=== PATIENT | male | born 1960 | race Caucasian/White ===

== ENCOUNTER 2017-01-17 11:19 | Emergency (ER) | payer BC, OTHER, SELFPAY ==
--- NOTE | 2017-01-17 12:22 | EDM.PDOC ---
[id number] IRREGULAR HEARTBEAT Time Seen by Provider: 01/17/17 11:45 Source of Information: Reports: Patient History Limitations: Reports: No Limitations - History of Present Illness INITIAL COMMENTS - FREE TEXT/NARRATIVE: 56-year-old male that has been experiencing palpitations for over a year, however recently they've been more frequent and have been giving him some shortness of breath and anxiety. Last night while sleeping he could tell he was having quite a few extra heartbeats, and this morning at work it was even making him feel lightheaded so he came in to have it evaluated. He has no pain. He is smoking a pack of cigarettes a day. He gets infrequent dyspnea with palpitations. No abdominal pain, fevers, cough or headaches. Onset: Unknown/Unsure Severity: Mild Worsens with: Reports: Other (Seems to be worse with stress) Associated Symptoms: Reports: Shortness of Breath, Weakness. Denies: Confusion , Chest Pain, Fever/Chills, Nausea/Vomiting Denies Pain Score (Numeric/FACES): 0 - Related Data Allergies Allergy/AdvReac Type Severity Reaction Status Date / Time Penicillins Allergy Rash Verified 01/17/17 11:38 Sulfa (Sulfonamide Allergy Cannot Verified 01/17/17 11:38 Antibiotics) Remember Home Meds: Home Meds Aspirin [[place] Aspirin] 81 mg PO DAILY 01/17/17 [History] Lisinopril/Hydrochlorothiazide [Lisinopril-Hctz 20-12.5 mg Tab] 2 tab PO DAILY 01/17/17 [History] Past Medical History HEENT History: Reports: Impaired Vision Cardiovascular History: Reports: Hypertension Neurological History: Reports: Concussion - Infectious Disease History Infectious Disease History: Reports: Chicken Pox, Measles Social & Family History - Tobacco Use Smoking Status *Q: Current Every Day Smoker Years of Tobacco use: 38 Packs/Tins Daily: 1 Used Tobacco, but Quit: No Second Hand Smoke Exposure: Yes - Caffeine Use Caffeine Use: Reports: Coffee - Alcohol Use Days Per Week of Alcohol Use: 5 Number of Drinks Per Day: 2 Total Drinks Per Week: 10 - Recreational Drug Use Recreational Drug Use: No ED ROS GENERAL - Review of Systems Review Of Systems: See Below Constitutional: Reports: Malaise. Denies: Fever, Chills HEENT: Reports: No Symptoms Respiratory: Reports: Shortness of Breath. Denies: Pleuritic Chest Pain, Cough Cardiovascular: Reports: Lightheadedness, Palpitations. Denies: Chest Pain GI/Abdominal: Denies: Abdominal Pain, Nausea, Vomiting : Reports: No Symptoms Musculoskeletal: Reports: No Symptoms Skin: Reports: No Symptoms Neurological: Reports: Dizziness. Denies: Headache Psychiatric: Reports: Anxiety ED EXAM, GENERAL - Physical Exam Exam: See Below Exam Limited By: No Limitations General Appearance: Alert, No Apparent Distress Eye Exam: Bilateral Eye: EOMI Respiratory/Chest: No Respiratory Distress, Lungs Clear Cardiovascular: Regular Rate, Rhythm, Extra Beats GI/Abdominal: Soft, Non-Tender, Other (Obese) Extremities: Normal Inspection. No: Pedal Edema Neurological: Alert, Oriented Psychiatric: Normal Affect, Normal Mood Skin Exam: Warm, Dry EKG INTERPRETATION Rhythm: NSR EKG Interpretation Comments: Normal sinus rhythm with PACs. Course - Vital Signs Last Recorded V/S: Last Vital Signs Temp 99.1 F 01/17/17 11:35 Pulse 92 01/17/17 12:34 Resp 20 01/17/17 11:35 BP 138/69 01/17/17 12:34 Pulse Ox 89 L 01/17/17 12:34 - Orders/Labs/Meds Orders: Active Orders 24 hr Category Date Time Status EKG Documentation Completion [RC] ASDIRECTED Care 01/17/17 11:37 Active EKG 12 Lead [EK] Routine Ther 01/17/17 11:37 Ordered Labs: Laboratory Tests 01/17/17 01/17/17 Range/Units 11:48 11:48 WBC 10.0 (4.5-11.0) K/uL RBC 5.09 (4.30-5.90) M/uL Hgb 16.7 H (12.0-15.0) g/dL Hct 48.1 (40.0-54.0) % MCV 95 (80-98) fL MCH 33 H (27-31) pg MCHC 35 (32-36) % Plt Count 203 (150-400) K/uL Neut % (Auto) 78 H (36-66) % Lymph % (Auto) 13 L (24-44) % [place] % (Auto) 8 H (2-6) % Eos % (Auto) 1 L (2-4) % Baso % (Auto) 1 (0-1) % Sodium 134 L (140-148) mmol/L Potassium 3.6 (3.6-5.2) mmol/L Chloride 98 L (100-108) mmol/L Carbon Dioxide 32 (21-32) mmol/L Anion Gap 7.6 (5.0-14.0) mmol/L BUN 12 (7-18) mg/dL Creatinine 0.9 (0.8-1.3) mg/dL Est Cr Clr Drug Dosing 82.70 mL/min Estimated GFR (MDRD) > 60 (>60) Glucose 123 H (74-106) mg/dL Calcium 9.2 (8.5-10.1) mg/dL Total Bilirubin 0.4 (0.2-1.0) mg/dL AST 34 (15-37) U/L ALT 50 (12-78) U/L Alkaline Phosphatase 82 (46-116) U/L Troponin I < 0.017 (0.000-0.056) ng/mL Total Protein 7.5 (6.4-8.2) g/dL Albumin 3.6 (3.4-5.0) g/dL Globulin 3.9 H (2.3-3.5) g/dL Albumin/Globulin Ratio 0.9 L (1.2-2.2) TSH, Ultra Sensitive 0.742 (0.358-3.740) uIU/mL - Re-Assessments/Exams Free Text/Narrative Re-Assessment/Exam: 01/17/17 12:22 Patient was placed on a monitor which revealed occasional PACs, this is confirmed with an EKG. CBC, CMP and TSH were obtained while the patient was continued on the threat monitoring analyst. 01/17/17 12:39 TSH was normal, CMP was reassuring with a slightly elevated glucose, CBC revealed a normal white count and a slightly elevated hemoglobin. We discussed further options such as a Holter monitor and an echocardiogram, but the patient wants to get some insurance first as today he was just looking for some reassurance that what he was feeling wasn't serious. I strongly encouraged him to decrease his smoking. Departure - Departure Time of Disposition: 13:33 Disposition: Home, Self-Care 01 Condition: Good Clinical Impression: Intermittent palpitations, PAC (premature atrial contraction) Instructions: Premature Atrial Contraction Referrals: Marc Sosa MD [Primary Care Provider] - Forms: ED Department Discharge Care Plan Goals: Try to decrease smoking, limit caffeine and continue activity as tolerated. Consider following up with Dr. Sosa to discuss further testing such as Holter monitor or echocardiogram, especially if your symptoms persist and continue to be bothersome. - My Orders Last 24 Hours: My Active Orders 01/17/17 11:37 EKG Documentation Completion [RC] ASDIRECTED EKG 12 Lead [EK] Routine - Assessment/Plan Last 24 Hours: My Active Orders 01/17/17 11:37 EKG Documentation Completion [RC] ASDIRECTED EKG 12 Lead [EK] Routine
[2017-01-17 12:55] VITALS: BP 138/69
== END 2017-01-17 12:40 | disposition home or self-care (01) ==
LOC: JP.ED 11:19
DX: R00.2 Palpitations (principal); I49.1 Atrial premature depolarization; I10 Essential (primary) hypertension; F17.210 Nicotine dependence, cigarettes, uncomplicated; Z88.0 Allergy status to penicillin; Z88.2 Allergy status to sulfonamides; Z79.82 Long term (current) use of aspirin; Z79.899 Other long term (current) drug therapy
CPT/HCPCS: 36415; 80053; 84443; 84484; 85025; 93005; 93010; 99284; 99284-25

== ENCOUNTER 2018-09-16 19:54 | Emergency (ER) | payer SELFPAY ==
[2018-09-16] MEDS ORDERED: Sodium Chloride 0.9% 10 ML Syringe FLUSH PRN ×2 (20:12→23:36)
[2018-09-16] MEDS ORDERED: fentaNYL 100 MCG/2 ML SDV IVPUSH ONE ×2 (20:12→21:23)
[2018-09-16] MEDS ORDERED: Sodium Chloride 0.9% 1,000 ML IV SCH (20:15)
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
[2018-09-16] MEDS ORDERED: Sodium Chloride 0.9% 80 ML IV SCH (21:30)
[2018-09-16] MEDS ORDERED: Iopamidol 612 MG/ML 100 ML Bottle IV SCH (21:30)
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
[2018-09-16] MEDS ORDERED: HYDROmorphone 1 MG/ML Syringe IVPUSH ONE (23:08)
[2018-09-16 23:39] VITALS: BP 107/52
== END 2018-09-17 00:42 ==
LOC: JP.ED 19:54
DX: S82.142A Displaced bicondylar fracture of left tibia, initial encounter for closed fracture (principal); S82.832A Other fracture of upper and lower end of left fibula, initial encounter for closed fracture; S42.112A Displaced fracture of body of scapula, left shoulder, initial encounter for closed fracture; S22.42XA Multiple fractures of ribs, left side, initial encounter for closed fracture; Z88.0 Allergy status to penicillin; Z88.2 Allergy status to sulfonamides; Z79.82 Long term (current) use of aspirin; Z79.899 Other long term (current) drug therapy; I10 Essential (primary) hypertension; F17.210 Nicotine dependence, cigarettes, uncomplicated; V89.2XXA Person injured in unspecified motor-vehicle accident, traffic, initial encounter
CPT/HCPCS: 36415; 71045; 71260; 73030; 73562; 73590; 80048; 85025; 96361; 96374; 96375; 96376; 99285; J1170; J3010; J7030; Q9967